=== PATIENT | female | born 2000 | race American Indian/Alaskan Native ===

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

== ENCOUNTER 2018-04-11 18:24 | Emergency (ER) | payer SELFPAY ==
[2018-04-11 20:47] LABS: Hematocrit 38.9 % (30.3-42.9); Hemoglobin 12.8 gm/dl (10.1-14.3); Mean Corpuscular HGB Conc 33 % (30-34); Mean Corpuscular Hemoglobin 29 pg (28-32); Mean Corpuscular Volume 88 fl (79-97); Platelet Count 243 K/mm3 (140-440); Red Cell Distribution Width 13.9 % (13.2-15.2)
--- NOTE | 2018-04-12 00:38 | Emergency Department Report ---
ED Female HPI - General Chief complaint: Vaginal Bleeding Stated complaint: ABD PAIN AND BLEEDING Time Seen by Provider: 04/12/18 00:37 Source: patient Mode of arrival: Ambulatory Limitations: No Limitations - History of Present Illness Initial comments: This is a 18-year-old female who is unknown to this provider previously, presenting to the ER with a complaint of intermittent crampy vaginal bleeding over the past 13 days. It does not radiate anywhere, and does not have exacerbating or relieving factors. She denies urinary symptoms. The patient denies syncope, loss of consciousness. MD Complaint: vaginal bleeding -: Gradual Location: suprapubic Severity: mild Quality: cramping Consistency: intermittent Improves with: none Worsens with: none Are you Now?: No Associated Symptoms: vaginal bleeding. denies: vaginal discharge, abdominal pain, nausea/vomiting, fever/chills, headaches, loss of appetite, dysuria, hematuria, rash, seizure, shortness of breath, syncope, weakness - Related Data Sexually active: Yes Home Medications Medication Instructions Recorded Confirmed Last Taken No Known Home Medications [No 04/12/18 04/12/18 Unknown Reported Home Medications] Allergies Allergy/AdvReac Type Severity Reaction Status Date / Time No Known Allergies Allergy Verified 11/15/17 17:44 ED Review of Systems ROS: Stated complaint: ABD PAIN AND BLEEDING Other details as noted in HPI Comment: All other systems reviewed and negative ED Past Medical Hx - Past Medical History Previous Medical History?: No - Surgical History Past Surgical History?: No - Social History Smoking Status: Never Smoker Substance Use Type: None - Medications Home Medications: Home Medications Medication Instructions Recorded Confirmed Last Taken Type No Known Home Medications [No 04/12/18 04/12/18 Unknown History Reported Home Medications] ED Physical Exam - General Limitations: No Limitations General appearance: alert, in no apparent distress - Head Head exam: Present: atraumatic, normocephalic - Eye Eye exam: Present: normal appearance, EOMI. Absent: nystagmus - ENT ENT exam: Present: normal exam, normal orophraynx, mucous membranes moist, normal external ear exam - Neck Neck exam: Present: normal inspection, full ROM - Respiratory Respiratory exam: Present: normal lung sounds bilaterally. Absent: respiratory distress - Cardiovascular Cardiovascular Exam: Present: regular rate, normal rhythm, normal heart sounds. Absent: bradycardia, tachycardia, irregular rhythm, systolic murmur, diastolic murmur, rubs, gallop - GI/Abdominal GI/Abdominal exam: Present: soft, normal bowel sounds. Absent: distended, tenderness, guarding, rebound, rigid, pulsatile mass - Extremities Exam Extremities exam: Present: normal inspection, full ROM, normal capillary refill , other (2+ pulses noted in the bilateral upper, lower extremities. Compartments soft. No long bony tenderness. The pelvis is stable.). Absent: pedal edema, joint swelling, calf tenderness - Back Exam Back exam: Present: normal inspection, full ROM. Absent: CVA tenderness (R), CVA tenderness (L), paraspinal tenderness, vertebral tenderness - Neurological Exam Neurological exam: Present: alert, oriented X3, CN II-XII intact, normal gait, other (Extraocular movements intact. Tongue midline. No facial droop. Facial sensation intact to light touch in the V1, V2, V3 distribution bilaterally. 5 and 5 strength in 4 extremities.. Sensation is intact to light touch in 4 extremities.). Absent: motor sensory deficit - Psychiatric Psychiatric exam: Present: normal affect, normal mood - Skin Skin exam: Present: warm, dry, intact, normal color. Absent: rash ED Course Vital Signs 04/11/18 04/12/18 04/12/18 19:10 00:27 00:28 Temperature 98.9 F Pulse Rate 82 Respiratory 16 16 Rate Blood Pressure 122/70 O2 Sat by Pulse 100 100 Oximetry 04/12/18 04/12/18 04/12/18 00:30 01:00 02:00 Temperature Pulse Rate 75 82 90 Respiratory 15 7 L 14 Rate Blood Pressure 111/65 113/74 112/69 O2 Sat by Pulse 100 99 Oximetry ED Medical Decision Making - Lab Data Result diagrams: 04/11/18 20:16 Vital Signs 04/11/18 04/12/18 04/12/18 19:10 00:27 00:28 Temperature 98.9 F Pulse Rate 82 Respiratory 16 16 Rate Blood Pressure 122/70 O2 Sat by Pulse 100 100 Oximetry 04/12/18 00:30 Temperature Pulse Rate 75 Respiratory 15 Rate Blood Pressure 111/65 O2 Sat by Pulse 100 Oximetry Labs 04/11/18 04/11/18 04/12/18 20:16 20:16 Unknown WBC 6.5 RBC 4.40 Hgb 12.8 Hct 38.9 MCV 88 MCH 29 MCHC 33 RDW 13.9 Plt Count 243 HCG, Qual Negative Urine Color Yellow Urine Turbidity Clear Urine pH 5.0 Ur Specific Hancock 1.029 Urine Protein 30 mg/dl Urine Glucose (UA) Neg Urine Ketones Tr Urine Blood Lg Urine Nitrite Neg Urine Bilirubin Neg Urine Urobilinogen 2.0 Ur Leukocyte Esterase Neg Urine WBC (Auto) 8.0 H Urine RBC (Auto) 15.0 U Epithel Cells (Auto) 3.0 Urine Bacteria (Auto) 1+ Urine Mucus 3+ - Medical Decision Making Differential diagnosis, including but not limited to: Dysfunctional uterine bleeding, , fibroids Assessment and plan: 18-year-old female with a complaint of 13 days intermittent vaginal bleeding. She reports using 2-3 pads in the past 24 hours. She declined a gynecologic examination. She has no urinary symptoms. She is not , hemoglobin, hematocrit appropriate and within normal limits. She is afebrile with reassuring vital signs and is playing on a cellular phone when this provider walks into the room. Given her nontender abdomen and benign exam, she does not require emergent ultrasound imaging, and she is medically suitable to follow up with an outpatient camp advisor. Critical care attestation.: If time is entered above; I have spent that time in minutes in the direct care of this critically ill patient, excluding procedure time. ED Disposition Clinical Impression: Vaginal bleeding Disposition: - TO HOME OR SELFCARE Is pt being admited?: No Does the pt Need Aspirin: No Condition: Good Instructions: Dysfunctional Uterine Bleeding (ED) Additional Instructions: Take ibuprofen, 400-600 mg [id number] with food every 6-8 hours as needed for pain, cramping. Follow up with any of the listed gynecology specialist within the next 7-10 days. Return to the ER right away with bleeding more than 2 pads soaked per hour, lightheadedness, dizziness, change in mental status, projectile vomiting, inability to tolerate liquid feeds, loss of consciousness, passing out, new, worsening or different symptoms not present on the initial ER evaluation. Referrals: PRIMARY CAREMD [Primary Care Provider] - 3-[address] RAMIREZ MD [Staff Physician] - 3-5 Days [facility] [Provider Group] - 3-5 Days [facility] [Provider Group] - 3-5 Days [facility] [Provider Group] - 3-5 Days Forms: Work/School Release Form(ED)
[2018-04-12 01:54] LABS: Bacteria,Urine 1+ /HPF (Negative); Bilirubin,Urine NEG (Negative); Blood,Urine LG (Negative); Color,Urine Yellow (Yellow); Mucus,Urine 3+ /HPF
[2018-04-12 02:40] VITALS: BP 112/69
== END 2018-04-12 02:38 | disposition home or self-care (01) ==
LOC: ED 18:24
DX: N93.8 Other specified abnormal uterine and vaginal bleeding (principal)
CPT/HCPCS: 36415; 81001; 84703; 85027; 99283